=== PATIENT | male | born 1990 | race Caucasian/White ===

== ENCOUNTER 2016-11-30 17:55 | Emergency (ER) | payer BC ==
[~2016-11-30 17:55] MED LIST: Sulfamethoxazole/Trimethoprim 800-160 MG Tab PO ONE
[2016-11-30 18:01] VITALS: BP 155/108
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
[2016-11-30 18:27] LABS: CHLORIDE,CL 102 mEq/L (98-106); SODIUM,NA 137 mEq/L (136-145)
[2016-11-30] MEDS ORDERED: Lidocaine 1% 20 ML MDV ONE (18:39)
[2016-11-30] MEDS ORDERED: cefTRIAXone 1 GM Vial IM ONE (18:40)
[2016-11-30] MEDS ORDERED: Take Home: Sulfamethoxazole/Trimethoprim 800-160 MG Tab, 2 Tab Pack PO ONE (18:41)
[2016-11-30] MEDS ORDERED: Sulfamethoxazole/Trimethoprim 800-160 MG Tab PO ONE (18:41)
== END 2016-11-30 19:13 | disposition home or self-care (01) ==
LOC: CC.ED 17:55
DX: L03.115 Cellulitis of right lower limb (principal)
CPT/HCPCS: 36415; 80048; 85025; 87040; 87070; 87077; 87186; 96372; 99283; A9270; J0696